=== PATIENT | male | born 1935 | race Caucasian/White ===

== ENCOUNTER 2018-05-03 23:23 | Inpatient (IN) | payer MEDICARE, OTHER ==
[~2018-05-03] VITALS: Ht 180.3 cm; Wt 81.5 kg
--- NOTE | 2018-05-03 23:38 | NUR ---
PT C/O LOWER ABD PAIN SINCE 1700 per triage note
[2018-05-03] MEDS ORDERED: OMNIPAQUE 350 MG/ML, 100ML BOTTLE ONE (23:42)
[2018-05-04] MEDS ORDERED: ONDANSETRON 2MG/ML, 2ML IVPush ONE
[2018-05-04] MEDS ORDERED: MORPHINE SULFATE 4 MG/ML, 1ML IVPush PRN
[2018-05-04 00:19] LABS: BASOPHILS # (AUTO) 0.02 x10^3/uL (0-0.1); BASOPHILS % (AUTO) 0 % (0-1); EOSINOPHILS # (AUTO) 0.01 x10^3/uL (0-0.4); EOSINOPHILS % (AUTO) 0 % (1-7); LYMPHOCYTES # (AUTO) 0.76 x10^3/uL (1-3.4); LYMPHOCYTES % (AUTO) 5 % (22-44); MD NO; MEAN CORPUSCULAR HEMOGLOBIN 31.8 pg (27.5-34.5); MEAN CORPUSCULAR HGB CONC 33.1 g/dL (33.2-36.2); MEAN PLATELET VOLUME 7.3 fL (7.4-10.4); MONOCYTES # (AUTO) 0.64 x10^3/uL (0.2-0.8); MONOCYTES % (AUTO) 5 % (2-9); NEUTROPHILS % (AUTO) 90 % (42-75); PLATELET COUNT 326 x10^3/uL (130-400); RED BLOOD COUNT 3.99 x10^6/uL (4.38-5.82); RED CELL DISTRIBUTION WIDTH 13.8 % (9.4-14.8)
[2018-05-04 00:29] LABS: ALANINE AMINOTRANSFERASE 18 U/L (12-78); ALBUMIN 3.6 g/dL (3.4-5.0); ANION GAP 7 mmol/L (5-15); CALCIUM 8.5 mg/dL (8.5-10.1); CHLORIDE 109 mmol/L (98-107); CREATININE 1.21 mg/dL (0.7-1.3)
[2018-05-04] MEDS ORDERED: GABA300C10 PO (00:30)
[2018-05-04] MEDS ORDERED: TAMS0.4C2 PO (00:30)
[2018-05-04] MEDS ORDERED: ATOR20TA37 PO (00:30)
[2018-05-04] MEDS ORDERED: LISI5TAB7 PO (00:30)
[2018-05-04] MEDS ORDERED: METF500T27 PO (00:30)
[2018-05-04 00:32] LABS: ALKALINE PHOSPHATASE 54 U/L (45-117); BILIRUBIN,TOTAL 0.5 mg/dL (0.2-1.0); TOTAL PROTEIN 6.4 g/dL (6.4-8.2)
[2018-05-04] MEDS ORDERED: ONDANSETRON 2MG/ML, 2ML ONE (00:39)
[2018-05-04] MEDS ORDERED: MORPHINE SULFATE 4 MG/ML, 1ML ONE (00:43)
[2018-05-04] MEDS ORDERED: KETOROLAC 30 MG/1 ML ONE (01:59)
[2018-05-04] MEDS ORDERED: KETOROLAC 30 MG/1 ML IVPush ONE (02:00)
--- NOTE | 2018-05-04 02:04 | NUR ---
pt's hr is slow up to 40's pt denied any symptoms pt is sleeping applied oxygen 2 liters via nc for oxygenation after given toradol iv
[2018-05-04 02:05] LABS: MICROSCOPIC AUTO
[2018-05-04 02:07] LABS: CULTURE INDICATED? NO
--- NOTE | 2018-05-04 03:08 | NUR ---
pt will be admitted pt is sleeping after given med vss stable
--- NOTE | 2018-05-04 03:16 | NUR ---
pt is resting sleeping pt will be admitted vss stable
--- NOTE | 2018-05-04 03:39 | NUR ---
nop hospital bed available at this time warm blanket applied
--- NOTE | 2018-05-04 03:47 | NUR ---
pt's wallet is in pt's pants pocket pt put byhimself pt refused to put security " i dont have money in my wallet i will keep in my pants pocket ." pt's belongings were in white bag at bed side
[2018-05-04] MEDS ORDERED: morphine SULFATE 10 MG/ML, 1ML IVPush PRN (04:30)
[2018-05-04] MEDS ORDERED: KETOROLAC 30 MG/1 ML IV PRN (04:30)
[2018-05-04] MEDS ORDERED: hydrALAzine 20 MG/ML, 1ML IVPush PRN (04:30)
[2018-05-04] MEDS ORDERED: POLYETHYLENE GLYCOL 17 GM PACKET PO PRN (04:30)
[2018-05-04] MEDS ORDERED: ACETAMINOPHEN 500 MG TABLET PO PRN (04:30)
[2018-05-04] MEDS ORDERED: ONDANSETRON 2MG/ML, 2ML IVPush PRN (04:30)
--- NOTE | 2018-05-04 04:33 | NUR ---
pt is sleeping vss stable smh at bed side for admit eval
--- NOTE | 2018-05-04 06:03 | NUR ---
pt is sleeping vss stable
[2018-05-04] MEDS ORDERED: HEPARIN 5,000 UNITS/ML, 1ML ONE ×2 (06:06→13:31)
[2018-05-04] MEDS: HEPARIN 5,000 UNITS/ML, 1ML SQ SCH ×2 (06:10→13:34)
[2018-05-04] MEDS: SODIUM CHLORIDE 0.9% 1,000 ML IV SCH ×2 (06:10→14:10)
--- NOTE | 2018-05-04 06:34 | NUR ---
pt is on hospital bed pt was able to stand up with this rn assist with stable gait and pt transferred self to hospital bed vss call light within reach pt was back to sleep
[2018-05-04] MEDS ORDERED: GABAPENTIN 300 MG CAPSULE ONE (08:07)
[2018-05-04] MEDS ORDERED: TAMSULOSIN 0.4 MG CAP.ER.24H ONE (08:07)
--- NOTE | 2018-05-04 08:37 | NUR ---
PT VSS, DENIES ANY PAIN AT THIS TIME. DISCUSSED WITH PT PLAN FOR DR. MASON TO SEE HIM TODAY. PT TO BE NPO UNTIL DR. MASON CONSULTS.
--- NOTE | 2018-05-04 08:48 | NUR ---
FSBS = 106, PT MED NOTED. METFORMIN HELD FOR NPO STATUS
[2018-05-04] MEDS ORDERED: metFORMIN 500 MG TABLET PO SCH (09:00)
[2018-05-04] MEDS ORDERED: GABAPENTIN 300 MG CAPSULE PO SCH (09:00)
[2018-05-04] MEDS ORDERED: TAMSULOSIN 0.4 MG CAP.ER.24H PO SCH (09:00)
[2018-05-04] MEDS ORDERED: LISINOPRIL 5 MG TABLET PO SCH (09:00)
--- NOTE | 2018-05-04 09:00 | NUR ---
PT OOB AMBULATE TO BATHROOM, RN ESCORT. TOOTHBRUSH, TOOTHPASTE PROVIDED.
--- NOTE | 2018-05-04 09:07 | NUR ---
PT RTD TO ROOM W/O INCIDENT. CALL LIGHT W/I REACH, NAD NOTED.
--- NOTE | 2018-05-04 10:14 | NUR ---
PAGE SENT FOR DR. MASON. PER ANSWERING SERVICE, KASSIE PERALTA W/B RETURNING PAGE
--- NOTE | 2018-05-04 10:53 | NUR ---
NO RESPONSE TO 1ST PAGE. 2ND PAGE SENT. (SPOKE WITH CHAVO AT ANSWERING SERVICE)
--- NOTE | 2018-05-04 11:02 | NUR ---
ROMANA RPT DISCUSSED WITH KASSIE PINEDA FOR DR. MASON. GUILLERMO TO DISCUSS W/ DR MASON AND WILL HAVE DR. MASON CALL.
--- NOTE | 2018-05-04 11:12 | NUR ---
PER KASSIE PINEDA FOR DR. MASON. DR MASON STATED THAT IF PT IS ASYMPTOMATIC THAT HE RECOMMENDS THAT PT BE D/C AND TO F/U OUT PATIENT. I RELAYED THIS INFORMATION TO DR. FLORES. DR. FLORES VERBALIZED THAT HE WANTED DR. MASON TO EITHER CONSULT ON THE PATIENT OR HE NEEDS TO WRITE A PROGRESS NOTE WITH HIS RECOMMEDATION.
--- NOTE | 2018-05-04 11:25 | NUR ---
PAGED KASSIE PINEDA
--- NOTE | 2018-05-04 11:30 | NUR ---
SPOKE WITH KASSIE PINEDA. RELAYED THE MESSAGE THAT DR FLORES WANTS DR MASON TO EITHER SEE THE PATIENT OR TO DOCUMENT A PROGRESS NOTE FOR RECOMMENDATION FOR F/U. GUILLERMO STATED SHE WOULD INFORM DR. MASON.
--- NOTE | 2018-05-04 11:41 | NUR ---
DR MASON CALLED AND STATED THAT NEW CONSULT S/B PLACED. HE IS IN CLINIC TODAY. 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
[2018-05-04 13:26] VITALS: BP 125/53
[2018-05-04] MEDS ORDERED: LEVOFLOXACIN/PMX 500MG/100ML 100 ML IV SCH (13:30)
[2018-05-04] MEDS ORDERED: SULF1TAB24 PO ×2 (14:43→14:44)
[2018-05-04] MEDS ORDERED: ATORVASTATIN 10 MG TABLET PO SCH (21:00)
== END 2018-05-04 16:25 | disposition home or self-care (01) | DRG 951 ==
LOC: ED 05-04 02:31 → EDIP 05-04 02:58 → OBSVTOIN 05-04 02:58 → 3NE 05-04 12:40
PROVIDERS: ADMIT Hospitalist; ATTEND Hospitalist
DX: Z90.49 Acquired absence of other specified parts of digestive tract (principal); N13.6 Pyonephrosis; N39.0 Urinary tract infection, site not specified; N20.0 Calculus of kidney; E11.9 Type 2 diabetes mellitus without complications; I10 Essential (primary) hypertension; K57.90 Diverticulosis of intestine, part unspecified, without perforation or abscess without bleeding; D72.829 Elevated white blood cell count, unspecified; N21.0 Calculus in bladder; N40.0 Benign prostatic hyperplasia without lower urinary tract symptoms
CPT/HCPCS: 36415; 74177; 80053; 81001; 82962; 83690; 85025; 87086; 96374; 96375; 99285; G0378; J1644; J1885; J1956; J2405; Q9967; J7030

== ENCOUNTER 2020-07-23 11:53 | Emergency (ER) | payer MEDICARE ==
[~2020-07-23] VITALS: Ht 177.8 cm; Wt 79.0 kg
[~2020-07-23 11:53] MED LIST: ATOR20TA37 PO; GABA300C10 PO; LISI5TAB7 PO; METF500T27 PO; SULF-23 PO; TAMS0.4C2 PO
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
--- NOTE | 2020-07-23 12:17 | NUR ---
pt ambulates well with RN standby to bathroom. Pt back in bed, blanket applied.
[2020-07-23] MEDS ORDERED: LIDOCAINE-MPF 1%, 5ML ONE (12:28)
[2020-07-23] MEDS ORDERED: HYDROcodone/APAP 5/325 TABLET ONE (12:29)
[2020-07-23] MEDS ORDERED: HYDROcodone/APAP 5/325 TABLET PO ONE (12:30)
[2020-07-23] MEDS ORDERED: LIDOCAINE 1%, 10ML INFIL ONE (12:30)
--- NOTE | 2020-07-23 12:33 | NUR ---
lido ready for provider. Awaiting CT.
--- NOTE | 2020-07-23 13:15 | NUR ---
PT RETURNED FROM IMAGING, SITTING UP IN BED, RESPIRATIONS EVEN AND UNLABORED ON RA. NAD NOTED AT THIS TIME, AWAITING RESULTS.
--- NOTE | 2020-07-23 13:49 | NUR ---
PT UP AMBULATING WELL WITH RN ESCORT TO BATHROOM. NAD NOTED AT THIS TIME.
--- NOTE | 2020-07-23 14:18 | NUR ---
PA IN TO MEDICATE PEOPLE
--- NOTE | 2020-07-23 14:41 | NUR ---
DISCUSSION WITH EDPA REGARDING PT'S LAC REPAIR. PER PA, PT NEEDED TO GET UP AND USE BATHROOM. PT CURRENTLY IN BED AWAITING SUTURES.
--- NOTE | 2020-07-23 14:58 | NUR ---
REPORT TO [facility]NER
[2020-07-23] MEDS ORDERED: NEOSPORIN OINT. PKT 1 PACKET ONE (15:00)
[2020-07-23 15:08] VITALS: BP 168/76
== END 2020-07-23 15:17 | disposition home or self-care (01) ==
LOC: ED 15:10
DX: S01.81XA Laceration without foreign body of other part of head, initial encounter (principal); S09.90XA Unspecified injury of head, initial encounter; E11.9 Type 2 diabetes mellitus without complications; W01.0XXA Fall on same level from slipping, tripping and stumbling without subsequent striking against object, initial encounter; Y93.89 Activity, other specified; Y92.410 Unspecified street and highway as the place of occurrence of the external cause; Y99.8 Other external cause status
CPT/HCPCS: 12051; 70450; 99284

== ENCOUNTER 2020-07-30 08:38 | Emergency (ER) | payer MEDICARE ==
[~2020-07-30] VITALS: Ht 177.8 cm; Wt 83.3 kg
[2020-07-30 08:40] VITALS: BP 178/90
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
--- NOTE | 2020-07-30 09:51 | NUR ---
Patient given discharge instructions and they have confirmed that they understand the instructions. Patient ambulatory with steady gait.
== END 2020-07-30 09:52 | disposition home or self-care (01) ==
LOC: ED 09:05
DX: S01.01XD Laceration without foreign body of scalp, subsequent encounter (principal); E11.9 Type 2 diabetes mellitus without complications; X58.XXXD Exposure to other specified factors, subsequent encounter
CPT/HCPCS: 99281